=== PATIENT | female | born 1990 | race Native Hawaiian/Other Pacific Islander ===

== ENCOUNTER 2021-03-29 12:49 | Outpatient (CLI) | payer OTHER ==
[~2021-03-29] VITALS: Ht 157.5 cm; Wt 75.5 kg
== END 2021-03-29 19:16 | disposition home or self-care (01) ==
LOC: INF 12:49
PROVIDERS: ATTEND Internal Medicine
DX: U07.1 COVID-19 (principal); Z23 Encounter for immunization
CPT/HCPCS: 96365; Q0239; Q0245